=== PATIENT | female | born 1985 | race Caucasian/White ===

== ENCOUNTER 2020-02-03 13:18 | Outpatient (CLI) | payer OTHER, SELFPAY | END 2020-02-03 13:19 | disposition home or self-care (01) | PROVIDERS: Visit Provider Student in an Organized Health Care Education/Training Program | DX: N91.2 Amenorrhea, unspecified (principal) | CPT/HCPCS: 36415; 84702; 86900; 86901 ==

== ENCOUNTER 2020-02-12 11:25 | Outpatient (CLI) | payer OTHER, SELFPAY ==
--- NOTE | ~2020-02-12 | US_ITS ---
EXAMINATION: US OB <= 14 weeks fetus DATE: 02/12/2020 12:05 INDICATION: Amenorrhea. Establish dating of during first trimester. TECHNIQUE: Real-time pelvic ultrasound utilizing both a transvaginal and transabdominal probe was pe rformed. The interpreting radiologist was not present for the study. COMPARISON: None. FINDINGS: The uterus measures 10.9 x 6.5 x 4.9 cm. There is an intrauterine gestational sac. A yolk sac and fe bibi pole are identified. The crown rump length measures 1 cm, which correlates with an estimated gest ational age of weeks and days. heart motion is identified measuring 169 beats per minute (bpm) by M-mode Doppler. The right ovary measures 3.2 x 3.2 x 3.0 cm and contains a 2.0 cm anechoic likely corpus luteum cyst. The left ovary measures 3.2 x 2.3 x 1.8 cm. There is no free fluid in the pelvis. IMPRESSION: 1. Single living fetus with heart rate of 169 bpm. 2. Gestational age by ultrasound of 7 weeks 1 day(s) +/- 5 day(s) with ultrasound estimated date of delivery (PREM) of 09/29/2020. Reviewed, dictated and finalized at location A. IMPRESSION: 1. Single living fetus with heart rate of 169 bpm. 2. Gestational age by ultrasound of 7 weeks 1 day(s) +/- 5 day(s) with ultraso und estimated date of delivery (PREM) of 09/29/2020.
== END 2020-02-12 11:26 | disposition home or self-care (01) ==
PROVIDERS: Visit Provider Student in an Organized Health Care Education/Training Program
DX: N91.2 Amenorrhea, unspecified (principal); Z3A.01 Less than 8 weeks gestation of pregnancy
CPT/HCPCS: 76801

== ENCOUNTER 2020-03-29 09:58 | Outpatient (RCR) | payer OTHER, SELFPAY ==
--- NOTE | 2020-03-29 09:59 | ECG_ITS ---
Measurements Intervals [place] Rate: 60 P: 60 FL: 145 QRS: 44 QRSD: 86 T: 17 QT: 397 QTc: 399 Interpretive Statements SINUS RHYTHM NORMAL ECG Electronically Signed On 03-29-2020 11:41:15 CDT by Nikolas Mcdonald D.O.
[2020-03-29 10:57] LABS: Basophils Percent Auto 0.1 % (0.2-1.2); Eosinophils Absolute Auto 0.1 K/mm3 (0-0.3); Eosinophils Percent Auto 1.3 % (0-4.4); Hematocrit 37.5 % (37.0-47.0); Hemoglobin 13.2 g/dL (12.0-15.0); Immature Granulocyte Absolute 0.02 K/mm3 (0.00-0.031); Immature Granulocyte Percent A 0.3 % (0-0.5); Lymphocytes Absolute Auto 1.89 K/mm3 (0.9-3.2); Lymphocytes Percent Auto 24.3 % (18.3-44.2); Mean Corpuscular HGB Conc 35.2 g/dl (32-36); Mean Corpuscular Hemoglobin 31.3 pg (26-34); Mean Corpuscular Volume 88.9 fl (80-100); Mean Platelet Volume 10.6 fl (7.4-10.4); Monocytes Absolute Auto 0.6 K/mm3 (0.1-0.6); Monocytes Percent Auto 7.5 % (2.6-8.5); Neutrophils Absolute Auto 5.2 K/mm3 (1.3-6.7); Neutrophils Percent Auto 66.5 % (45.5-73.1); Platelet Count Result 205 k/mm3 (150-375); Red Blood Count 4.22 M/mm3 (4.2-5.4); Red Cell Distribution Width 12.6 % (11.5-14.5); White Blood Count 7.8 K/mm3 (4.5-10.0)
[2020-03-29 10:59] LABS: Add Urine Microscopic? NO; Appearance Urine Clear (Clear); Bilirubin Urine Negative (Negative); Blood Urine Negative (Negative); Color Urine Straw (Yellow); Glucose Urine UA Negative (Negative); Ketones Urine Negative (Negative); Leukocyte Esterase Ur Negative LEU/UL (NEGATIVE); Nitrate Urine Negative (Negative); Protein Urine Negative (Negative); Urobilinogen Urine Negative mg/dL (<2.0)
[2020-03-29 11:14] LABS: Alanine Aminotransferase 11 U/L (4-35); Albumin Level 3.8 g/dL (3.5-5.1); Alkaline Phosphatase 46 U/L (38-126); Aspartate Amino Transferase 16 U/L (14-36); Bilirubin,Total 0.2 mg/dL (0.2-1.3); Blood Urea Nitrogen 6 mg/dL (7-17); Carbon Dioxide 24 mmol/L (22-30); Chloride 103 mmol/L (98-107); Estimated Glomerular Filt Rate > 60; Glucose 100 mg/dL (65-105); Lactate Dehydrogenase 325 U/L (313-618); Sodium 134 mmol/L (137-145)
[2020-03-29 11:53] LABS: Vitamin D 25 Hydroxy 44.3 ng/mL
[2020-03-29 11:57] LABS: HIV 1/2 Ab P24 Ag Result Negative (Negative)
[2020-03-29 12:11] LABS: Hepatitis B Surface Antigen Negative (Negative); Rubella IgG Antibody 55.4 IU/ML
[2020-03-29 12:24] LABS: Hepatitis C Virus Antibody Negative (Negative)
[2020-03-30 11:57] LABS: Rapid Plasma Reagin Non-Reactive (NonReactive)
[2020-04-03 15:46] LABS: Hemoglobin 13.2 g/dL (11.7-15.5); MCH 31.4 pg (27.0-33.0); MCV 99.8 FL (80.0-100.0); RDW 15.4 % (11.0-15.0); Red Blood Cell Count 4.21 Mill/uL (3.80-5.10)
== END 2020-06-27 23:59 | disposition home or self-care (01) ==
LOC: ANHLAB 09:58
PROVIDERS: Visit Provider Student in an Organized Health Care Education/Training Program
DX: O10.919 Unspecified pre-existing hypertension complicating pregnancy, unspecified trimester (principal); Z11.4 Encounter for screening for human immunodeficiency virus [HIV]; Z3A.00 Weeks of gestation of pregnancy not specified
CPT/HCPCS: 36415; 80053; 81003; 81243; 82306; 83021; 83615; 84443; 84550; 85025; 86592; 86703; 86762; 86787; 86803; 86850; 86900; 86901; 87086; 87340; 93005; G0432

== ENCOUNTER 2020-03-31 13:22 | Outpatient (CLI) | payer OTHER, SELFPAY ==
[2020-03-31 16:10] LABS: Total Volume 24 Hour Urine 2400 ml
[2020-03-31 16:19] LABS: Total Protein Urine 24 Hr 240 MG/DAY (28-141); Total Protein Urine Random 10 mg/dL
[2020-03-31 16:20] LABS: Creatinine 24 Hour Urine 1.9 gm/24 (0.8-1.8); Creatinine Urine 82.8 mg/dL
== END 2020-03-31 13:23 | disposition home or self-care (01) ==
PROVIDERS: Visit Provider Student in an Organized Health Care Education/Training Program
DX: O10.919 Unspecified pre-existing hypertension complicating pregnancy, unspecified trimester (principal)
CPT/HCPCS: 81050; 82570; 84156

== ENCOUNTER 2020-07-07 11:32 | Outpatient (CLI) | payer OTHER, SELFPAY ==
[2020-07-07 12:52] LABS: Basophils Percent Auto 0.3 % (0.2-1.2); Eosinophils Absolute Auto 0.1 K/mm3 (0-0.3); Eosinophils Percent Auto 1.2 % (0-4.4); Hematocrit 36.6 % (37.0-47.0); Hemoglobin 12.5 g/dL (12.0-15.0); Immature Granulocyte Absolute 0.06 K/mm3 (0.00-0.031); Immature Granulocyte Percent A 0.6 % (0-0.5); Lymphocytes Absolute Auto 2.23 K/mm3 (0.9-3.2); Lymphocytes Percent Auto 20.9 % (18.3-44.2); Mean Corpuscular HGB Conc 34.2 g/dl (32-36); Mean Corpuscular Hemoglobin 32.4 pg (26-34); Mean Corpuscular Volume 94.8 fl (80-100); Mean Platelet Volume 10.3 fl (7.4-10.4); Monocytes Absolute Auto 0.7 K/mm3 (0.1-0.6); Monocytes Percent Auto 6.8 % (2.6-8.5); Neutrophils Absolute Auto 7.5 K/mm3 (1.3-6.7); Neutrophils Percent Auto 70.2 % (45.5-73.1); Platelet Count Result 174 k/mm3 (150-375); Red Blood Count 3.86 M/mm3 (4.2-5.4); Red Cell Distribution Width 13.5 % (11.5-14.5); White Blood Count 10.7 K/mm3 (4.5-10.0)
[2020-07-07 13:06] LABS: Glucose 1 Hour PP 50gm Dose 131 mg/dL
== END 2020-07-07 11:33 | disposition home or self-care (01) ==
LOC: ANHLAB 11:34
PROVIDERS: Visit Provider Student in an Organized Health Care Education/Training Program
DX: Z34.82 Encounter for supervision of other normal pregnancy, second trimester (principal)
CPT/HCPCS: 36415; 82947; 85025

== ENCOUNTER 2020-07-14 08:27 | Outpatient (CLI) | payer OTHER, SELFPAY ==
[2020-07-14 09:06] LABS: Glucose Fasting Gestational 97 mg/dL (>/=95)
[2020-07-14 10:46] LABS: Glucose 1 Hour Gest 164 mg/dL (>/=180)
[2020-07-14 11:35] LABS: Glucose 2 Hour Gest 156 mg/dL (>/= 155)
[2020-07-14 12:32] LABS: Glucose 3 Hour Gest 155 mg/dL (>/=140)
== END 2020-07-14 08:28 | disposition home or self-care (01) ==
PROVIDERS: Visit Provider Student in an Organized Health Care Education/Training Program
DX: R73.09 Other abnormal glucose (principal)
CPT/HCPCS: 36415; 82951; 82952

== ENCOUNTER 2020-07-27 14:00 | Outpatient (RCR) | payer OTHER, SELFPAY ==
[2020-07-27 13:46] VITALS: BMI 36.3
[2020-07-27 13:51] VITALS: BMI 36.3
== END 2020-07-27 16:54 | disposition home or self-care (01) ==
LOC: ANHDMC 14:00
PROVIDERS: Visit Provider Student in an Organized Health Care Education/Training Program
DX: O24.419 Gestational diabetes mellitus in pregnancy, unspecified control (principal); Z3A.00 Weeks of gestation of pregnancy not specified
CPT/HCPCS: 97802; G0108

== ENCOUNTER 2020-08-18 11:06 | Outpatient (CLI) | payer OTHER, SELFPAY ==
[2020-08-18 11:46] LABS: Basophils Percent Auto 0.4 % (0.2-1.2); Eosinophils Absolute Auto 0.1 K/mm3 (0-0.3); Eosinophils Percent Auto 1.1 % (0-4.4); Hematocrit 38.2 % (37.0-47.0); Hemoglobin 13.2 g/dL (12.0-15.0); Immature Granulocyte Absolute 0.06 K/mm3 (0.00-0.031); Immature Granulocyte Percent A 0.5 % (0-0.5); Lymphocytes Absolute Auto 1.98 K/mm3 (0.9-3.2); Lymphocytes Percent Auto 17.3 % (18.3-44.2); Mean Corpuscular HGB Conc 34.6 g/dl (32-36); Mean Corpuscular Hemoglobin 32.2 pg (26-34); Mean Corpuscular Volume 93.2 fl (80-100); Mean Platelet Volume 10.8 fl (7.4-10.4); Monocytes Absolute Auto 0.9 K/mm3 (0.1-0.6); Monocytes Percent Auto 7.7 % (2.6-8.5); Neutrophils Absolute Auto 8.3 K/mm3 (1.3-6.7); Platelet Count Result 170 k/mm3 (150-375); Red Cell Distribution Width 13.4 % (11.5-14.5); White Blood Count 11.4 K/mm3 (4.5-10.0)
[2020-08-18 12:39] LABS: HIV 1/2 Ab P24 Ag Result Negative (Negative)
[2020-08-18 13:34] LABS: Rapid Plasma Reagin Non-Reactive (NonReactive)
== END 2020-08-18 11:07 | disposition home or self-care (01) ==
PROVIDERS: Visit Provider Student in an Organized Health Care Education/Training Program
DX: Z34.90 Encounter for supervision of normal pregnancy, unspecified, unspecified trimester (principal); Z3A.00 Weeks of gestation of pregnancy not specified
CPT/HCPCS: 36415; 85025; 86592; 86703; G0432

== ENCOUNTER 2020-09-20 10:00 | Outpatient (RCR) | payer OTHER, SELFPAY ==
[2020-09-01 10:52] VITALS: BP 129/71; PULSE 96
[2020-09-06 11:11] VITALS: BP 126/73; PULSE 103
[2020-09-09 11:58] VITALS: BP 127/72; PULSE 86
--- NOTE | 2020-09-09 19:04 | PC.NURSE ---
Repeat BPP is 04/17. Pt given standard post NST discharge instructions and verbalizes understanding.
[2020-09-13 14:01] VITALS: BP 133/78; PULSE 84
[2020-09-16 11:18] VITALS: BP 123/73; PULSE 88
--- NOTE | ~2020-09-20 | US_ITS ---
EXAMINATION: US OB BPP wo non-stress DATE: 09/01/2020 11:23 INDICATION: Gestational diabetes, third trimester TECHNIQUE: Real-time pelvic ultrasound was performed. The interpreting radiologist was not present fo r the study. COMPARISON: 08/25/2020 FINDINGS: There is a single living fetus in vertex presentation. The placenta is posterior. heart rate is 149 beats per minute (bpm). Biophysical profile performed by the technologist: breathing (30 sec sustained breathing in 30 minutes): 2 out of 2 movement (3 gross body movements in 30 minutes): 2 out of 2 tone (one episode of tphvqpt-abwfxjsse-izkwtyb limb movement): 2 out of 2 Amniotic fluid pocket (2 cm): 2 out of 2 Total score: 8 out of 8 IMPRESSION: 1. Single living fetus in vertex presentation. 2. Biophysical profile 8 out of 8. Reviewed, dictated and finalized at location A. EXAMINER
--- NOTE | ~2020-09-20 | US_ITS ---
US OB BPP wo non-stress DATE: 08/25/2020 11:43 INDICATION: Gestational diabetes mellitus TECHNIQUE: Real-time imaging and Doppler analysis COMPARISON: 02/12/2020 obstetrical ultrasound FINDINGS: Live [place] intrauterine gestation, fetus in vertex presentation, longitudinal lie. Feta l heart rate of 149 bpm. Posterofundal placenta, lower margin 8.4 cm above the internal os. BIOPHYSICAL PROFILE reported by fiberglass quality technician: breathin out of 2 movement: 2 out of 2 tone: 2 out of 2 Amniotic fluid pocket: 2 out of 2 Total score: 8 out of 8 IMPRESSION: Normal biophysical profile score of 8 out of 8 Reviewed, dictated and finalized at Location A. Reviewed, dictated and finalized at location B. ER DRIVER
--- NOTE | ~2020-09-20 | US_ITS ---
EXAMINATION: US OB BPP wo non-stress EXAM DATE: 09/09/2020 11:33 INDICATION: Gestational diabetes. 3rd trimester. TECHNIQUE: Pelvic obstetrical transabdominal sonogram was performed by a technologist. There are mu ltiple grayscale and Doppler images available for interpretation. Comparison is made to prior examina tion from 09/01/2020. FINDINGS: There is a single fetus identified in vertex presentation with a heart rate of 145 beats pe r minute. The placenta is located in the fundal position. There is no sonographic evidence of retrop lacental hemorrhage identified. There is subjectively expected amount of amniotic fluid. BIOPHYSICAL PROFILE (performed by the technologist) breathing (30 sec sustained breathing in 30 minutes): 2 out of 2 movement (3 gross body movements in 30 minutes): 2 out of 2 tone (one episode of vsttvuu-ijozkvifq-dlcyvvg limb movement): 0 out of 2 Amniotic fluid pocket (2 cm): 2 out of 2 Total score: 6 out of 8 IMPRESSION: 1. Single fetus with heart rate of 145 bpm. 2. ABNORMAL BPS 6/8, tone not demonstrated. Reviewed, dictated and finalized at location G. MILITARY ANALYST
--- NOTE | ~2020-09-20 | US_ITS ---
EXAMINATION: US OB BPP wo non-stress DATE: 09/16/2020 11:18 REFERENCE LIBRARY ASSISTANT INDICATION: Gestational diabetes TECHNIQUE: Real-time transabdominal obstetric ultrasound. FINDINGS: No prior studies for comparison. There is a single living fetus in vertex presentation. The placenta is fundal/posterior without plac enta previa. cardiac activity and movement is noted with a heart rate of 166 beats per minute. Biophysical profile: breathin of 2 movement: 2 of 2 tone: 2 of 2 Amniotic flud pocket: 2 of 2 Total score: 8 of 8 IMPRESSION: 1. Single living intrauterine in vertex presentation. 2: Total biophysical profile score of 8/8. Reviewed, dictated and finalized at location A. RENCE LIBRARY ASSISTANT
--- NOTE | ~2020-09-20 | US_ITS ---
EXAMINATION: US OB BPP wo non-stress DATE: 09/09/2020 19:04 INDICATION: Abnormal biophysical profile, third trimester TECHNIQUE: Real-time pelvic ultrasound was performed. The interpreting radiologist was not present fo r the study. COMPARISON: 1035 hours today FINDINGS: There is a single living fetus in vertex presentation. The placenta is fundal. heart rate is 14 7 beats per minute (bpm). Biophysical profile performed by the technologist: breathing (30 sec sustained breathing in 30 minutes): 2 out of 2 movement (3 gross body movements in 30 minutes): 2 out of 2 tone (one episode of cssolwa-qzxdhzjfo-hfiddag limb movement): 2 out of 2 Amniotic fluid pocket (2 cm): 2 out of 2 Total score: 8 out of 8 IMPRESSION: 1. Single living fetus in vertex presentation. 2. Biophysical profile 8 out of 8. Reviewed, dictated and finalized at location A. E MECHANIC
[2020-09-20 10:42] VITALS: BP 134/75; PULSE 89
== END 2020-09-23 07:35 | disposition home or self-care (01) ==
LOC: ANHOBOP 10:00
PROVIDERS: Visit Provider Student in an Organized Health Care Education/Training Program
DX: O24.419 Gestational diabetes mellitus in pregnancy, unspecified control (principal); Z3A.35 35 weeks gestation of pregnancy; Z3A.36 36 weeks gestation of pregnancy; Z3A.37 37 weeks gestation of pregnancy; Z3A.38 38 weeks gestation of pregnancy
CPT/HCPCS: 59025; 76819; J0131; J2274; J2590

== ENCOUNTER 2020-09-22 09:58 | Inpatient (IN) | payer OTHER, SELFPAY ==
[2020-09-22] VITALS (56 sets, daily range): BP systolic 113–147; BP diastolic 65–96; PULSE 53–107; RESP 14–18; TEMP 36.1–36.9; O2SAT 93–100; BMI 37.3
--- NOTE | 2020-09-22 09:58 | LDADM ---
This patient, Belinda Willis, was admitted to Labor/Delivery/Recovery 119 on 09/22/20 at 09:58. Plans for labor, pain management and were discussed with patient. Patient/family oriented to hospital policies and general routines including ID bracelet, bed and alarms, visiting hours, pain management, procedures, bathroom and other care routines, personal items, smoking policy, room service/diet and guest tray routines, infant security routines, and visiting hours. Patient/Family are encouraged to report perceived risks to care and to ask questions if they do not understand what they are told or what they should do. See OBIX for further documentation.
[2020-09-22 10:37] LABS: Glucose Point of Care 93 (65-105)
[2020-09-22 11:10] LABS: Basophils Percent Auto 0.2 % (0.2-1.2); Eosinophils Absolute Auto 0.2 K/mm3 (0-0.3); Eosinophils Percent Auto 1.2 % (0-4.4); Hematocrit 40.1 % (37.0-47.0); Hemoglobin 13.9 g/dL (12.0-15.0); Immature Granulocyte Absolute 0.08 K/mm3 (0.00-0.031); Immature Granulocyte Percent A 0.6 % (0-0.5); Lymphocytes Absolute Auto 2.61 K/mm3 (0.9-3.2); Lymphocytes Percent Auto 20.1 % (18.3-44.2); Mean Corpuscular HGB Conc 34.7 g/dl (32-36); Mean Corpuscular Hemoglobin 31.9 pg (26-34); Mean Platelet Volume 11.3 fl (7.4-10.4); Monocytes Percent Auto 7.3 % (2.6-8.5); Neutrophils Absolute Auto 9.2 K/mm3 (1.3-6.7); Neutrophils Percent Auto 70.6 % (45.5-73.1); Platelet Count Result 166 k/mm3 (150-375); Red Blood Count 4.36 M/mm3 (4.2-5.4); Red Cell Distribution Width 13.4 % (11.5-14.5)
[2020-09-22] MEDS: LACTATED RINGERS 1,000 ML 125 ML IV CONT ×3 (11:10→12:30)
--- NOTE | 2020-09-22 11:23 | WPDANESEPPF ---
Anes - Initial Pre Proc Eval Procedure: Operation Date: 09/22/20 12:00 Proposed Procedures p Repeat Section - Harriett Quintero MD Date/Time: 09/22/20 11:23 Surgeon: Harriett Quintero MD Pre Op Diagnosis: C Section Patient Data Age: 35 Gender: F Height: 5 ft 7 in Weight: 108 kg Last Vital Signs Pulse 94 09/22/20 10:15 BP 131/82 09/22/20 10:15 Allergies Allergy/AdvReac Type Severity Reaction Status Date / Time Penicillins Allergy Unknown Verified 09/21/20 11:05 Home Medications Medication Instructions Recorded Confirmed Type vits 75-iron 28 mg-folic 1 pkg PO DAILY 02/03/20 09/16/20 History acid 800 mcg-omega-3 oral combo pack alcohol swabs See Rx Instructions TOPICAL 07/15/20 09/09/20 Rx .COMPLEX #100 ea blood-glucose meter #1 ea 07/15/20 09/09/20 Rx lancets #100 ea 07/15/20 09/09/20 Rx blood sugar diagnostic #100 ea 08/30/20 09/09/20 Rx Laboratory Tests 09/22/20 09/22/20 09/22/20 10:21 10:39 10:39 WBC 13.0 K/mm3 H K/mm3 (4.5-10.0) RBC 4.36 M/mm3 M/mm3 (4.2-5.4) Hgb 13.9 g/dL g/dL (12.0-15.0) Hct 40.1 % % (37.0-47.0) MCV 92.0 fl fl (80-100) MCH 31.9 pg pg (26-34) MCHC 34.7 g/dl g/dl (32-36) RDW 13.4 % % (11.5-14.5) Plt Count 166 k/mm3 k/mm3 (150-375) MPV 11.3 fl H fl (7.4-10.4) Immature Gran % (Auto) 0.6 % H % (0-0.5) Neut % (Auto) 70.6 % % (45.5-73.1) Lymph % (Auto) 20.1 % % (18.3-44.2) [place] % (Auto) 7.3 % % (2.6-8.5) Eos % (Auto) 1.2 % % (0-4.4) Baso % (Auto) 0.2 % % (0.2-1.2) Lymph # (Auto) 2.61 K/mm3 K/mm3 (0.9-3.2) [place] # (Auto) 1.0 K/mm3 H K/mm3 (0.1-0.6) Eos # (Auto) 0.2 K/mm3 K/mm3 (0-0.3) Baso # (Auto) 0.0 K/mm3 K/mm3 (0.0-0.1) Abs Immat Gran (auto) 0.08 K/mm3 H K/mm3 (0.00-0.031) Absolute Neuts (auto) 9.2 K/mm3 H K/mm3 (1.3-6.7) Absolute Nucleated RBC 0.0 K/mm3 K/mm3 (0.0-0.012) Nucleated RBC % 0.0 % % (0.0-0.2) POC Capillary Glucose 93 mg/dl mg/dl (65-105) RPR Pending Patient hx anesthesia problems: none Family hx anesthesia problems: none PMFSH Past Medical History Medical History Hypothyroidism Surgical History Surgical History Previous section Status post removal of thyroid nodule Family History Family History Mother Acute myocardial infarction Hypertension High cholesterol Father Hypertension High cholesterol Other Breast cancer Social History Social History Smoking status: Never smoker Second hand tobacco smoke exposure: No Alcohol intake: former Substance use: never Gender identity (if verbalized by the patient): Female Sexual Orientation (if Verbalized by the Patient): Straight or Heterosexual Spiritual care concerns: No Anes - Eval Final PreProcedure Day of Procedure 09/22/20 11:23 Patient weight: obese Heart: regular rate and rhythm Lungs: clear to auscultation Airway: Mallampati scale class II Neurological: alert and oriented Last oral intake: >/= 8 hours ASA classification: II Emergent: no Anesthetic plan: proceed Anesthesia type and monitoring: regional spinal and standard monitoring Informed Consent: The patient's anesthetic plan and its attendant risks and benefits were discussed with the patient/family/POA. Questions were solicited and answers provided to the satisfaction of the patient/family/POA.
--- NOTE | 2020-09-22 11:27 | PM.IMHP ---
H&P: HPI History of Present Illness Date/Time: 09/22/20 11:27 The patient is a 35-year-old LMP 12/10/2019. Patient is currently 39 weeks gestation. She is dated by an ultrasound on 02/12/20 at 7 weeks gestation. Patient has a history of a previous section x1. She presents to Labor and delivery today for scheduled repeat section. Patient was extensively counseled regarding TOLAC, however, declined. Patient reports feeling well today. She denies any vaginal bleeding, leakage of fluid, or contractions. Reports good movement. During , patient was diagnosed with gestational diabetes that has been well controlled with diet. Patient also had a few elevated blood pressures towards the beginning of her prior to 20 weeks gestation. She was diagnosed with chronic hypertension, however, blood pressures have remained within normal limits throughout the remainder of . Chief Complaint: section Narrative: Belinda Willis is a 35 year old female Review of Systems Review of Systems: All systems reviewed & are unremarkable except as noted in HPI and below Constitutional: Constitutional: Reports as per HPI, Reports no additional constitutional complaints, Denies chills, Denies fever(s), Denies headache(s) and Denies night sweats Eyes: Eyes: Reports as per HPI and Reports no additional eye complaints ENT: Reports system reviewed and no additional complaints, except as documented, Reports as per HPI, Reports Normal hearing present and Denies headache(s) Cardiovascular: Cardiovascular: Reports as per HPI, Reports no additional cardiovascular complaints, Denies chest pain and Denies dyspnea Respiratory: Respiratory: Reports as per HPI, Reports no additional respiratory complaints, Denies cough and Denies dyspnea Gastrointestinal: Gastrointestinal: Reports as per HPI, Reports no additional gastrointestinal complaints, Denies abdominal pain, Denies change in bowel habits, Denies change in stool character, Denies nausea and Denies vomiting Genitourinary: Genitourinary: Reports no additional female genitourinary complaints, Reports as per HPI, Denies abnormal vaginal bleeding, Denies genital lesions, Denies hot flashes, Denies dyspareunia, Denies pelvic pain, Denies sexual dysfunction, Denies urinary incontinence, Denies vaginal discharge, Denies vaginal dryness and Denies vaginal odor Musculoskeletal: Musculoskeletal: Reports no additional musculoskeletal complaints and Reports as per HPI Integumentary/Breasts: Skin/Breast: Reports system reviewed and no additional complaints, except as docu, Reports as per HPI, Denies breast pain and Denies nipple discharge Neurologic: Reports system reviewed and no additional complaints, except as documented, Reports as per HPI, Reports Normal hearing present and Denies headache(s) Psychiatric: Psychiatric: Reports no additional psychiatric complaints, Reports as per HPI, Denies anxiety and Denies depression Endocrine: Endocrine: Reports no additional endocrine complaints and Reports as per HPI Hematologic/Lymphatic: Hematologic/Lymphatic: Reports no additional hematologic/lymphatic complaints and Reports as per HPI Allergic/Immunologic: Allergic/Immunologic: Reports no additional allergic/immunologic complaints and Reports as per HPI PMFSH Past Medical History Medical History (Updated 09/22/20 @ 11:31 by Harriett Quintero MD) Chronic hypertension in Gestational diabetes Hypothyroidism Surgical History Surgical History Previous section Status post removal of thyroid nodule Family History Family History Mother Acute myocardial infarction Hypertension High cholesterol Father Hypertension High cholesterol Other Breast cancer Social History Social History Smoking sta
--- NOTE | 2020-09-22 11:33 | WPDHPUPDATE1 ---
History and Physical Update Update Date/Time: 09/22/20 11:33 History and Physical has been reviewed, including an updated exam of the patient. There are NO changes in the patient's condition. Risks, benefits, and alternatives have been discussed and questions answered. Patient agrees to proceed with procedure.
[2020-09-22] MEDS: ceFAZolin 2 GM/D5W 50 ML 2 GM/50 ML BAG IVPB (11:51)
--- NOTE | 2020-09-22 13:38 | P.PCNOB_ITS ---
OB - Delivery Note Procedure Delivery date: 09/22/20 Procedure: Procedures Operation Date: 09/22/20 12:00 Actual Procedures Side Surgeon p Repeat Section Not Applicable Harriett Quintero MD events: Previous and Gestational Diabetes Route of delivery: Specimen: Yes (placenta and cord, cord gases, cord blood) Quantitative Blood Loss (ml): 295 Anesthesia type: Spinal Disposition: PACU Complications: No immediate complications [place] Baby Date of : 09/22/20 Time of : 12:26 Weeks of gestation at delivery: 39 Infant gender: Female Weight (pounds): 7 Weight (ounces): 8 presentation: vertex Placenta delivery description: Manual Removal cord vessel description: 3 Vessels score one minute: 8 score five minutes: 9
--- NOTE | 2020-09-22 13:50 | PM.PROC ---
Procedure Note - Detailed Date of procedure: 09/22/20 Pre-op diagnosis: C Section Previous section x 1 Declines TOLAC Chronic hypertension Gestational diabetes Post-op diagnosis: same Procedure performed: Repeat low transverse section via Pfannenstiel Description of procedure: The patient was taken to the operating room, where she self-transferred to the operating room table. Spinal anesthesia was administered and found to be adequate. The patient was placed in dorsal supine position with a leftward tilt. She was prepped and draped in the usual sterile fashion. Spinal anesthesia was tested and found to be adequate. A Pfannenstiel skin incision was made with a scalpel and carried through to underlying layer of fascia with the Bovie. The fascia was incised in the midline and the incision was extended laterally with the use of forceps and Wells scissors. The inferior aspect of the fascial incision was grasped with Simona clamps, elevated, and the underlying rectus muscles were dissected off with Wells scissors. Attention was then turned to the superior aspect of the fascial incision, which in a similar manner, was grasped with Simona clamps, elevated, and the underlying rectus muscles were also dissected off with Wells scissors. The rectus muscles were in the midline and the peritoneal cavity was entered bluntly. This incision was extended superiorly and inferiorly with good visualization of the bladder and care was taken to avoid blood vessels. A bladder blade was inserted. The vesicouterine peritoneum was identified and incised sharply with Metzenbaum scissors. This incision was extended laterally with Metzenbaum scissors and a bladder flap was created digitally. The bladder blade was replaced. A low-transverse uterine incision was made with a scalpel. This incision was extended laterally with bandage scissors. Amniotomy was performed. Clear amniotic fluid was noted. The infant's head was grasped and gently guided to the level of the uterine incision. The infant's head was delivered easily and atraumatically without difficulty followed by the neck, shoulders, and rest of body with gentle fundal pressure. The 's nose and mouth were suctioned bulb suction. The was crying spontaneously. The cord was clamped and cut and the infant was handed off to waiting nursing staff. A segment of cord was collected for cord gases. Cord blood was also collected. The placenta was then delivered manually with gentle uterine massage. Uterus was exteriorized and cleared of all clots and debris. The uterine incision was reapproximated with 0 Vicryl in a running, locked fashion. A second imbricating layer using 0 Monocryl performed. Excellent hemostasis was noted. On inspection, the uterus, ovaries, and fallopian tubes appeared to be normal bilaterally. The uterus was replaced into the abdominal cavity. The gutters were cleared of all clots and debris. The uterine incision was inspected again and noted to be hemostatic. Hemaderm was applied across the uterine incision. Seprafilm was also applied across the uterine incision and anterior surface of the uterus. The peritoneum was reapproximated with 2-0 Monocryl. The fascia was then closed with 0 Vicryl in a running fashion. The subcutaneous layer was irrigated with water. Pinpoint areas of bleeding were made hemostatic with Bovie. The subcutaneous layer was reapproximated with 2-0 plain and the skin was then closed with 4-0 Monocryl in a subcuticular fashion. The skin was cleansed and dried. Dermaflex skin adhesive was applied across the incision. The remainder the patient was cleansed and dried. The patient was transferred to the recovery room in stable condition. All sponge, lap, and instrument counts were correct at the end of the procedure x3. The patient tolerated the procedure well. Anesthesia: spinal Surgeon: Harriett Quintero MD Cloth Finishing Range Operator Chief: Ginny Wood Estimated blood loss (mL): 295 IV fluids (mL): 1,600 Urine
[2020-09-22] MEDS: ONDANSETRON INJ 4 MG/2 ML VIAL IV PUSH ×2 (15:04→16:15)
[2020-09-22] MEDS: OXYTOCIN 30 UNITS/NS 500 ML 30 UNITS/500 ML BAG 125 UNITS IV CONT (15:05)
--- NOTE | 2020-09-22 16:22 | PC.NURSE ---
Patient transferred to post room #283 via stretcher. Support person present. Oriented to unit, room, information board, rooming in, admission packet and security measures. Patient verbalizes understanding.
--- NOTE | 2020-09-22 16:52 | SUR.PHASEI ---
1530 pt is still vomiting after zofran IV. called VIDEO GAME PROGRAMMER and requested evaluation for nausea. 1540 Sravan Solorzano VIDEO GAME PROGRAMMER at bedside, decadron 4 mg and benadryl 25 mg iv slow push given per VIDEO GAME PROGRAMMER. 1600 Ruby Velazco CRNA at bedside reevaluated pt nausea. pt is still vomiting. Ruby Velazco CRNA ordered additional zofran. 1615 zofran 4 mg iv given. pt shows improvement of nausea. 1620 transferred pt to OB 2nd floor via stretcher.
[2020-09-22] MEDS: DEXTROSE 5%/0.45% SOD CHL 1,000 ML 125 ML IV CONT (19:24)
[2020-09-23] VITALS: BP 123/57; PULSE 73; RESP 18; TEMP 36.9; O2SAT 97
[2020-09-23] MEDS: ACETAMINOPHEN 325 MG TABLET 650 MG PO ×3 (04:01→17:02)
[2020-09-23 04:15] VITALS: BP 116/66; PULSE 69; RESP 18; TEMP 36.9; O2SAT 97
[2020-09-23 05:39] LABS: Basophils Percent Auto 0.2 % (0.2-1.2); Eosinophils Percent Auto 0.1 % (0-4.4); Hematocrit 36.8 % (37.0-47.0); Hemoglobin 12.9 g/dL (12.0-15.0); Immature Granulocyte Absolute 0.11 K/mm3 (0.00-0.031); Immature Granulocyte Percent A 0.6 % (0-0.5); Lymphocytes Absolute Auto 2.31 K/mm3 (0.9-3.2); Lymphocytes Percent Auto 12.9 % (18.3-44.2); Mean Corpuscular HGB Conc 35.1 g/dl (32-36); Mean Corpuscular Hemoglobin 32.5 pg (26-34); Mean Corpuscular Volume 92.7 fl (80-100); Mean Platelet Volume 11.8 fl (7.4-10.4); Monocytes Absolute Auto 1.2 K/mm3 (0.1-0.6); Monocytes Percent Auto 6.9 % (2.6-8.5); Neutrophils Absolute Auto 14.2 K/mm3 (1.3-6.7); Neutrophils Percent Auto 79.3 % (45.5-73.1); Platelet Count Result 169 k/mm3 (150-375); Red Blood Count 3.97 M/mm3 (4.2-5.4); Red Cell Distribution Width 13.3 % (11.5-14.5)
[2020-09-23] MEDS: IBUPROFEN 600 MG TABLET PO ×3 (05:52→19:51)
[2020-09-23] MEDS: SIMETHICONE 80 MG TAB.CHEW PO ×3 (05:53→19:51)
[2020-09-23 08:15] VITALS: BP 105/68; PULSE 68; RESP 16; TEMP 37.3; O2SAT 99
[2020-09-23] MEDS: DOCUSATE SODIUM 100 MG CAPSULE PO ×2 (08:29→17:02)
[2020-09-23] MEDS: MULTIVIT/MIN/PREN/FOL AC/IRON TABLET 1 TAB PO (08:29)
--- NOTE | 2020-09-23 08:53 | PM.OBPNVD ---
OB - PN: Subj Subjective Date/time seen: 09/23/20 08:53 Patient doing well this morning. Pain well controlled medication. Patient reports mild shoulder discomfort. Denies any headache, chest pain, shortness of breath, nausea, or vomiting. Tolerating p.o. diet. Linda catheter removed this morning. Has not yet voided. Limited ambulation. No flatus yet. OB - PN: Obj Data Labs CBC & Chem 7: 09/23/20 04:07 Labs: Laboratory Results - last 24 hr 09/22/20 09/22/20 09/22/20 10:21 10:39 10:39 WBC 13.0 H RBC 4.36 Hgb 13.9 Hct 40.1 MCV 92.0 MCH 31.9 MCHC 34.7 RDW 13.4 Plt Count 166 MPV 11.3 H Immature Gran % (Auto) 0.6 H Neut % (Auto) 70.6 Lymph % (Auto) 20.1 [place] % (Auto) 7.3 Eos % (Auto) 1.2 Baso % (Auto) 0.2 Lymph # (Auto) 2.61 [place] # (Auto) 1.0 H Eos # (Auto) 0.2 Baso # (Auto) 0.0 Abs Immat Gran (auto) 0.08 H Absolute Neuts (auto) 9.2 H Absolute Nucleated RBC 0.0 Nucleated RBC % 0.0 POC Capillary Glucose 93 Blood Type A Positive Antibody Screen Negative 09/23/20 04:07 WBC 18.0 H RBC 3.97 L Hgb 12.9 Hct 36.8 L MCV 92.7 MCH 32.5 MCHC 35.1 RDW 13.3 Plt Count 169 MPV 11.8 H Immature Gran % (Auto) 0.6 H Neut % (Auto) 79.3 H Lymph % (Auto) 12.9 L [place] % (Auto) 6.9 Eos % (Auto) 0.1 Baso % (Auto) 0.2 Lymph # (Auto) 2.31 [place] # (Auto) 1.2 H Eos # (Auto) 0.0 Baso # (Auto) 0.0 Abs Immat Gran (auto) 0.11 H Absolute Neuts (auto) 14.2 H Absolute Nucleated RBC 0.0 Nucleated RBC % 0.0 POC Capillary Glucose Blood Type Antibody Screen OB - PN A/P Assessment and Plan (1) Delivery by section of full-term : Code(s): O82 - Encounter for delivery without indication Status: Acute Assessment and Plan: POD#1 doing well continue routine postoperative care encourage ambulation and use of IS Time Spent With Patient Time: Total time spent is greater than 50% in coordination of care (as documented) at patient's floor/unit and/or counseling patient: Exam Const: General: cooperative, healthy appearing, comfortable and no acute distress GI: Inspection: non-distended GI Palp: Yes Soft to palpation and Yes Tenderness to palpation present (GI) (appropriately) Other: inc c/d/i fundus below umbilicus Extrem: Right lower extremity: no edema Left lower extremity: no edema Other: no calf tenderness
[2020-09-23 09:10] LABS: Rapid Plasma Reagin Non-Reactive (NonReactive)
--- NOTE | 2020-09-23 11:12 | WPDANLDPN2 ---
Anes-Prog Note L&D Date/Time: 09/23/20 11:12 Comfortable throughout: labor and section Neuraxial method: spinal Epidural/Spinal procedure site: clean & non-tender Neuro status: Neuro function grossly intact. Cardiovascular status: normal Respiratory status: normal Airway patency: baseline Mental status: baseline Post-Op hydration status: normal Vital Signs: Last Vital Signs Temp 37.3 C 09/23/20 08:15 Pulse 68 09/23/20 08:15 Resp 16 09/23/20 08:15 BP 105/68 09/23/20 08:15 Pulse Ox 99 09/23/20 08:15 Pain score (VAS): 0/10. Patient resting in bed at time of assessment, appears comfortable. Patient describes moderate to severe nausea with vomiting following on 09/22/2020. Patient describes some relief with PRN nausea medications. Nausea appears to have resolved today (09/23/2020) per patient. I/O: Intake & Output 09/22/20 09/23/20 09/23/20 23:59 07:59 15:59 Intake Total 996 600 Output Total 400 1800 Balance 596 -1200 Post-procedural complaints: nausea (PRN medications given for nausea and vomiting. ) severe, treatment refractory and vomiting Patient feedback: Patient satisfied with anesthetic care.
--- NOTE | 2020-09-23 11:14 | WPDANLDNPN2 ---
Anes-Prog Note L&D-Neuraxial Date/Time: 09/23/20 11:14 Neuraxial medications: intrathecal PF morphine Opiod-related complaints: vomiting Patient feedback: Patient satisfied with post-operative pain management.
[2020-09-23 12:35] VITALS: BP 121/65; PULSE 84; RESP 18; TEMP 36.8; O2SAT 97
[2020-09-23 19:43] VITALS: BP 118/68; PULSE 75; RESP 16; TEMP 36.8
[2020-09-24] MEDS: SIMETHICONE 80 MG TAB.CHEW PO (02:36)
[2020-09-24 07:40] VITALS: BP 129/78; PULSE 79; RESP 18; TEMP 36.5; O2SAT 98
--- NOTE | 2020-09-24 08:25 | P.PNOB_ITS ---
OB - PN: Subj Subjective Date/time seen: 09/24/20 08:25 Patient doing well this morning. Still reports mild shoulder discomfort and gas discomfort. Otherwise, abdominal pain well controlled with medication. Patient denies any headache, chest pain, shortness of breath, nausea, or vomiting. Tolerating p.o. diet. Voiding without difficulty. Passing flatus and has had a bowel movement. Ambulating without di fficulty. OB - PN: Obj Data Labs CBC & Chem 7: 09/23/20 04:07 Labs: Laboratory Results - last 24 hr 09/22/20 10:39 RPR Non-reactive OB - PN A/P Assessment and Plan (1) Delivery by section of full-term infant: Code(s): O82 - Encounter for delivery without indication Status: Acute Assessment and Plan: POD#2 doing well continue routine postoperative care discharge home in stable condition emergency precautions reviewed f/u in office in 1 week Time Spent With Patient Time: Total time spent is greater than 50% in coordination of care (as documented) at patient's floor/unit and/or counseling patient: Exam Const: General: cooperative, healthy appearing, comfortable and no acute distress GI: Inspection: non-distended GI Palp: Yes Soft to palpation and No Tenderness to palpation present (GI) Other: inc c/d/i fundus below umbilicus Extrem: Right lower extremity: no edema Left lower extremity: no edema Other: no calf tenderness
--- NOTE | 2020-09-24 08:29 | P.DS_ITS ---
DS: Admitting Diagnosis Admitting Diagnosis Admitting Diagnosis: Repeat section OB - DS: Summary OB Procedures : None OB Procedures Intrapartum: OB Procedures: : None Peripartum Data Procedures: Procedures Operation Date: 09/22/20 12:00 Actual Procedures Side Surgeon p Repeat Section Not Applicable Harriett Quintero MD Time Spent with Patient Time attestation: Total time spent providing and/or coordinating discharge services: DS: Data Data Completed and Pending Pending studies at discharge: Pending at discharge 09/22/20 12:37 Surgical [PTH] Routine Labs on day of discharge: Labs from last 24 hours 09/22/20 10:39 RPR Non-reactive Discharge Plan Discharge Attending physician on discharge: Harriett Quintero Discharging Clinician: Harriett Quintero Anticipated Discharge Date/Time: 09/24/20 08:29 Patient Disposition: Home, Self-Care Activity: as tolerated and pelvic rest Diet: regular Discharge Instructions: Call office ([phone]) to schedule the following appointments: 1. BP check in 1 week. 2. Postoperative/wound check in 2 weeks. 3. visit in 6 weeks. You may take Ibuprofen 600mg every 6 hours as needed for pain. I have sent a prescription for a stronger pain medication, [place], to your pharmacy. You may take this as prescribed for breakthrough pain (pain that is not controlled with Ibuprofen). No driving for at least two weeks. You also may not drive while taking narcotics. Pain medication may make you constipated. It may be helpful to take an [id number] stool softener, such as Colace and/or Senokot, along with the pain medication to help lessen constipation. Call office or go to ED for pain not controlled with medication, headache, chest pain, shortness of breath, fever, chills, persistent nausea or vomiting, severe abdominal pain, heavy vaginal bleeding >2 pads/hour, foul vaginal discharge or odor, any redness near incision, severe pain, pus or drainage from incision site, or problems with your breasts. Patient Instructions: Antibiotic Form Stand Alone Forms: General Discharge Information Follow-up/Referrals: Harriett Quintero MD [Physician] - Discharge Medications: New hydrocodone-acetaminophen 5-325 mg Tablet 1 tab PO Q4-6H PRN (Reason: Moderate Pain (4-6)) Qty: 30 RF: 0 Continued PNV cmb#95-ferrous fumarate-FA [] 28 mg iron- 800 mcg Tablet 1 tablet PO DAILY RF: 0 Date of admission: 09/22/20 09:58 Primary Care Provider: PHYSICIAN,ACCOUNT [employer] Admitting Provider: Harriett Quintero Attending physician on admission: Harriett Quintero Condition: Stable
[2020-09-24] MEDS: TETANUS,DIPHTHERIA,AC PERTUSSIS ADULT (0.5 ML) BOOSTRIX IM (08:37)
[2020-09-24] MEDS: MULTIVIT/MIN/PREN/FOL AC/IRON TABLET 1 TAB PO (08:37)
[2020-09-24] MEDS: IBUPROFEN 600 MG TABLET PO (08:37)
[2020-09-24] MEDS: DOCUSATE SODIUM 100 MG CAPSULE PO (08:37)
--- NOTE | 2020-09-24 08:40 | PC.NURSE ---
Patient received instruction on viewing the discharge video Mother & Baby Care, The First Two Weeks . Patient was given the opportunity and encouraged to ask questions. Patient verbalized understanding of information shared and has been given the mother/baby guide for home reference.
--- NOTE | 2020-09-24 15:00 | PC.NURSE ---
1000 Breast feeding note; Nurse visited with mother prior to her and baby's discharge; pt's PP nurse reported baby has lost to 10% and per order, mother to supplement after breast feedings, about 20cc. LC reinforced importance of supplementation at this time; Mother states baby is latching, but has some difficulty some time with latch, and mother has worried she is getting enough, and mother reports feeling a little frustrated with feedings;Baby sound asleep after a feeding within the last hour. Nurse offered to come at next feeding, but parents were anxious to be discharged home and left shortly after this visit. Discussed with mother how to assess for deep latch at feedings, and how to adjust infant to deeper latch while on the breast; discussed keeping stimulated to do the most vigorous sucking she will do for as along as she will, and trying to nurse both sides each feeding, waking to nurse at q2-3h intervals, and continuing the supplementation; mother states she has a breast pump, and plans to start pumping at home; parents instructed they can use any breast milk pumped as supplementation, then offering formula to amount baby wants. Mother and baby have f/u appointment tomorrow; reinforced importance of that visit, and baby's one week Dr. visit. Parents agreed, and voiced understanding of information shared. Mother has her Mother Baby Guide; breast feeding section flagged for her including LC contact information; nurse encouraged mother to call LC office with any questions or concerns. She voiced understanding.
[2020-09-25 11:04] VITALS: BP 123/84; PULSE 89; RESP 20; TEMP 37.2; O2SAT 99
== END 2020-09-24 10:40 | disposition home or self-care (01) | DRG 787 ==
LOC: ANHLDR 10:01 → ANHOB2 16:26
PROVIDERS: Admitting Provider Student in an Organized Health Care Education/Training Program; Visit Provider Student in an Organized Health Care Education/Training Program
PROC: 10D00Z1 Extraction of Products of Conception, Low, Open Approach (ICD-10-PCS; CPT 59514; principal; 2020-09-22 12:00)
DX: O34.211 Maternal care for low transverse scar from previous cesarean delivery (principal); O10.92 Unspecified pre-existing hypertension complicating childbirth; O24.420 Gestational diabetes mellitus in childbirth, diet controlled; Z3A.39 39 weeks gestation of pregnancy; Z37.0 Single live birth; Z23 Encounter for immunization
CPT/HCPCS: 36415; 85025; 86592; 86850; 86900; 86901; 88307; 90471; 90653; 90715; A9270; C1765; G0008; J0131; J0690; J2405; J2590; J7120

== ENCOUNTER 2020-09-28 14:41 | Emergency (ER) | payer OTHER, SELFPAY ==
--- NOTE | ~2020-09-28 | CT_ITS ---
EXAMINATION: CTA chest PE protocol DATE: 09/28/2020 19:48 INDICATION: Left chest pain TECHNIQUE: Computed tomography angiography (CTA) of the chest was performed with 100 mL Omnipaque-350 intravenous contrast timed to evaluate the pulmonary arteries. Coronal maximum intensity projection 3D-reconstructions were created by the technologist. The dose-length product (DLP) was 513.43 mGy-cm. Automated exposure control and iterative reconstruction technique were employed. COMPARISON: None. FINDINGS: The pulmonary arteries are well-opacified. No pulmonary embolism is identified. There is no pleural effusion or pneumothorax. No focal airspace opacities are identified. No pathologically enla rged thoracic lymph nodes are identified. The heart size is normal. There is a 7 mm nodule of the lef t lower lobe. IMPRESSION: 1. No pulmonary embolism or acute cardiopulmonary abnormality. 2. 7 mm nodule of the left lower lobe. In a patient this age without known malignancy, finding most l ikely represents granulomatous disease. Could consider follow-up CT in 6-12 months. Reviewed, dictated and finalized at location A. [employer] IMPRESSION: 1. No pulmonary embolism or acute cardiopulmonary abnormality. 2. 7 mm nodule of the left lower lobe. In a patient this age without known ryann gnancy, finding most likely represents granulomatous disease. Could consider fo llow-up CT in 6-12 months.
[2020-09-28 15:11] VITALS: BP 137/88; PULSE 85; RESP 20; TEMP 36.4; O2SAT 100
[2020-09-28 15:22] LABS: Basophils Percent Auto 0.5 % (0.2-1.2); Eosinophils Absolute Auto 0.3 K/mm3 (0-0.3); Hematocrit 42.4 % (37.0-47.0); Hemoglobin 14.4 g/dL (12.0-15.0); Immature Granulocyte Absolute 0.04 K/mm3 (0.00-0.031); Immature Granulocyte Percent A 0.5 % (0-0.5); Lymphocytes Absolute Auto 2.13 K/mm3 (0.9-3.2); Lymphocytes Percent Auto 25.9 % (18.3-44.2); Mean Corpuscular Volume 94.2 fl (80-100); Mean Platelet Volume 9.9 fl (7.4-10.4); Monocytes Absolute Auto 0.7 K/mm3 (0.1-0.6); Monocytes Percent Auto 8.5 % (2.6-8.5); Neutrophils Absolute Auto 5.1 K/mm3 (1.3-6.7); Neutrophils Percent Auto 61.6 % (45.5-73.1); Platelet Count Result 217 k/mm3 (150-375); White Blood Count 8.2 K/mm3 (4.5-10.0)
[2020-09-28 15:34] LABS: Alanine Aminotransferase 41 U/L (4-35); Albumin Level 3.8 g/dL (3.5-5.1); Alkaline Phosphatase 84 U/L (38-126); Anion Gap 4 mmol/L (8-16); Aspartate Amino Transferase 34 U/L (14-36); Bilirubin,Total 0.5 mg/dL (0.2-1.3); Blood Urea Nitrogen 13 mg/dL (7-17); Calcium 9.2 mg/dL (8.4-10.2); Carbon Dioxide 31 mmol/L (22-30); Chloride 104 mmol/L (98-107); Estimated CRCL calculation 105 ml/min; Estimated Glomerular Filt Rate > 60; Glucose 90 mg/dL (65-105); Lipase 70 U/L (23-300); Potassium 3.8 mmol/L (3.4-5.0); Sodium 139 mmol/L (137-145)
[2020-09-28 15:35] LABS: Add Urine Microscopic? YES; Appearance Urine Clear (Clear); Bilirubin Urine Negative (Negative); Blood Urine 2+ (Negative); Color Urine Yellow (Yellow); Glucose Urine UA Negative (Negative); Ketones Urine Negative (Negative); Leukocyte Esterase Ur Negative LEU/UL (Negative); Mucus Urine Rare /lpf; Nitrate Urine Negative (Negative); Protein Urine Negative (Negative); RBC Urine 0-2 /hpf (0-2); Specific Grav Ur 1.013 (1.001-1.035); Squamous Epithelial Cell Urine Moderate /hpf (Few); Urobilinogen Urine Negative mg/dL (<2.0); WBC Urine 0-3 /hpf
[2020-09-28 18:19] VITALS: BP 129/79; PULSE 82; RESP 15; O2SAT 100
--- NOTE | 2020-09-28 20:30 | ED.GENADULT ---
HPI - General Adult General Chief complaint: Abdominal Pain Stated complaint: abd pain post c section Time Seen by Provider: 09/28/20 15:53 Source: patient Mode of arrival: ambulatory Limitations: no limitations History of Present Illness HPI narrative: Patient presents with chief complaint of 2 days of pain to the left side of her thorax. Patient states that she also has a rash around her incision site that is slightly erythematous and pruritic. Patient states that she called her [employer] Dr. Quintero today and she instructed her to come to the emergency department to rule out a PE. Patient states that she has an appointment with Dr. Quintero in her office for follow-up tomorrow. Patient states that she does not feel short of breath however she does feel the pain to her left side when she takes a deep breath in. Patient had her 1 week ago. She reports that it was without complication. Patient states that she believes she had the rash after her with her first however she cannot recall. Patient denies fever, chills, nausea, vomiting, chest pain or cough. Related Data Home Medications Medication Instructions Recorded Confirmed PNV cmb#95-ferrous fumarate-FA 1 tablet PO DAILY 09/22/20 09/22/20 [] Allergies Allergy/AdvReac Type Severity Reaction Status Date / Time Penicillins Allergy Unknown Verified 09/21/20 11:05 Review of Systems Review of Systems: Narrative: CONSTITUTIONAL: Denies fever, chills, or sweats. EYES: Denies visual changes, redness, or discharge. ENT: Denies rhinorrhea, congestion, sore throat, or otalgia. CARDIOVASCULAR: Reports left-sided lateral chest pain, denies palpitations, or edema. RESPIRATORY: Denies cough or dyspnea. GASTROINTESTINAL: Denies abdominal pain, nausea, vomiting, or diarrhea. GENITOURINARY: Denies dysuria or hematuria. SKIN: Reports rash and itching. MUSCULOSKELETAL: Denies back pain, joint pain, or myalgia. NEUROLOGIC: Denies headache, numbness, dizziness, or weakness. PSYCHIATRIC: Denies anxiety or depression. [facility] Past Medical History Medical History (Updated 09/28/20 @ 20:41 by Monroe Medina PA-C) Chronic hypertension in Gestational diabetes Hypothyroidism Surgical History Surgical History Previous section Status post removal of thyroid nodule Family History Family History Mother Acute myocardial infarction Hypertension High cholesterol Father Hypertension High cholesterol Other Breast cancer Social History Social History Smoking status: Never smoker Second hand tobacco smoke exposure: No Alcohol intake: former Substance use: never Gender identity (if verbalized by the patient): Female Spiritual care concerns: No Exam Narrative: Exam Narrative: GENERAL: Well-appearing, well-nourished, and in no acute distress. HEAD: Normocephalic, atraumatic. EYES: PERRLA and EOMI. NECK: Supple. No adenopathy or masses. Range of motion intact. CHEST: Clear to auscultation. No respiratory distress. No wheezes rales or rhonchi. Tachypneic or hypoxic. HEART: Regular rate and rhythm. ABDOMEN: Soft, nontender, nondistended, normal active bowel sounds. EXTREMITIES: Normal range of motion. No edema. SKIN: Patient's incision appears to be healing well. There is not purulent drainage from the area. There is mild erythema surrounding the site with increased warmth. warm, dry, no rash. NEURO: No focal deficits. Alert and oriented x3. PSYCH: Normal mood and affect. Course Vital Signs Vital signs: Vital Signs Temperature 97.6 F 09/28/20 15:11 Pulse Rate 85 09/28/20 15:11 Respiratory Rate 20 09/28/20 15:11 Blood Pressure 137/88 09/28/20 15:11 Pulse Oximetry 100 09/28/20 15:11 Temperature 97.6 F 09/28/20 15:11
[2020-09-28 21:09] VITALS: BP 124/78; PULSE 89; RESP 17; O2SAT 97
[2020-09-28 21:15] VITALS: BP 124/78; PULSE 89; RESP 16; TEMP 36.7; O2SAT 97
[2020-09-28] MEDS: CEPHALEXIN 500 MG CAPSULE PO (21:15)
== END 2020-09-28 21:16 | disposition home or self-care (01) ==
PROVIDERS: Emergency Medicine; Emergency Provider Emergency Medicine; PCP Student in an Organized Health Care Education/Training Program
DX: O90.89 Other complications of the puerperium, not elsewhere classified (principal); R07.89 Other chest pain; O86.01 Infection of obstetric surgical wound, superficial incisional site; L03.311 Cellulitis of abdominal wall; O10.93 Unspecified pre-existing hypertension complicating the puerperium; O24.439 Gestational diabetes mellitus in the puerperium, unspecified control; O99.285 Endocrine, nutritional and metabolic diseases complicating the puerperium; E89.0 Postprocedural hypothyroidism; R91.1 Solitary pulmonary nodule
CPT/HCPCS: 36415; 71275; 80053; 81001; 81025; 83690; 85025; 99284; A9270; Q9967